=== PATIENT | female | born 1980 | race Caucasian/White ===

== ENCOUNTER 2017-09-06 12:45 | Emergency (ER) | payer MEDICAID ==
[2017-09-06 12:53] VITALS: RESP 18
--- NOTE | 2017-09-06 14:16 | EDPHY ---
H & P Stated Complaint: Right flank pain, burning with urination started today. Time Seen by Provider: 09/06/17 14:15 - Personal History LMP (Females 10-55): IUD In Place Current Tetanus Diphtheria and Acellular Pertussis (TDAP): Yes - Medical/Surgical History Hx Asthma: No Hx Chronic Respiratory Disease: No Hx Diabetes: Yes Hx Cardiac Disease: No Hx Renal Disease: Yes Hx Cirrhosis: No Hx Alcoholism: No Hx HIV/AIDS: No Hx Splenectomy or Spleen Trauma: No Other PMH: kidney stone, gallbladder removed, c-sections, non-hod lymphoma - Social History Smoking Status: Current every day smoker Constitutional: Initial Vital Signs Temperature (C) 36.6 C 09/06/17 12:50 Heart Rate 106 H 09/06/17 12:50 Respiratory Rate 18 09/06/17 12:50 Blood Pressure 146/103 H 09/06/17 12:50 O2 Sat (%) 97 09/06/17 12:50 O2 Delivery Mode Room Air Allergies/Adverse Reactions: morphine [Morphine] Allergy (Verified 08/15/16 11:24) prochlorperazine edisylate [From Compazine] Allergy (Verified 08/15/16 11:24) prochlorperazine maleate [From Compazine] Allergy (Verified 08/15/16 11:24) Home Medications: Medication Instructions Recorded Effexor 06/11/16 Humalog 06/11/16 Lantus 100 UNITS/ML (*) 06/11/16 Lyrica 06/11/16 Cephalexin [Keflex (RX)] 500 mg PO TID #30 cap 09/06/17 Phenazopyridine HCl [Pyridium] 200 mg PO TID #6 tab 09/06/17 Medical Decision Making ED Course/Re-evaluation: CHIEF COMPLAINT: Flank pain, dysuria HISTORY OF PRESENT ILLNESS: The patient is a 37 y/o female with a history of diabetes complaining of right flank pain and dysuria for the last day. She has associated urinary urgency and frequency. She has a history of prior UTIs and kidney stones and reports this feels exactly the same as previous UTIs. She denies fever, vomiting, nausea, diarrhea, or other systemic symptoms. REVIEW OF SYSTEMS: A 10 point review of systems was performed and is negative with the exception of the elements mentioned in the history of present illness. PHYSICAL EXAM: HR, BP, O2 Sat, RR. Temp noted General Appearance: Alert, well hydrated, appropriate, and non-toxic appearing. Head: Atraumatic without scalp tenderness or obvious injury Eyes: Pupils equal, round, reactive to light and accommodation, EOMI, no trauma , no injection. Nose: Atraumatic, no rhinorrhea, clear. Throat: Mucus membranes moist. Neck: Supple, nontender, no lymphadenopathy. Respiratory: No retractions, no distress, no wheezes, and no accessory muscle use. Lungs are clear to auscultation bilaterally. Cardiovascular: Regular rate and rhythm, no murmurs, rubs, or gallops. Good capillary refill all extremities. Gastrointestinal: Abdomen is soft, nontender, non-distended, no masses, no rebound, no guarding, no peritoneal signs. Musculoskeletal: Normal active ROM of all extremities, atraumatic. Neurological: Alert, appropriate, and interactive. The patient has non-focal cranial nerves, motor, sensory, and cerebellar exam. Skin: No rashes, good turgor, no nodules on palpation. 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 MEDICAL DECISION MAKING: This is a 37 y/o female with a history of diabetes, UTIs, and kidney stone who presents with what feels like a UTI for the last day. Her exam is unremarkable and she is afebrile. She has no evidence of system illness. Her UA indicates UTI. Plan to treat with Keflex and discharge with standard UTI care and follow up instructions. She is comfortable with this plan. - Data Points Laboratory Results: 09/06/17 09/06/17 13:30 13:30 Urine Color YELLOW Urine Appearance HAZY Urine pH 6.0 (5.0-7.5) Ur Specific [place] 1.026 (1.002-1.030) Urine Protein 1+ H (NEGATIVE) Urine Ketones 1+ H (NEGATIVE) Urine Blood 1+ H (NEGATIVE) Urine Nitrate NEGATIVE (NEGATIVE) Urine Bilirubin NEGATIVE (NEGATIVE) Urine Urobilinogen NEGATIVE EU EU (0.2-1.0) Ur Leukocyte Esterase TRACE H (NEGATIVE) Urine RBC 25-50 /hpf H /hpf (0-3) Urine WBC 50-182 /hpf H /hpf (0-3) Ur Epithelial Cells 1+ /lpf /lpf (NONE-1+) Urine Bacteria 4+ /hpf H /hpf (NONE SEEN) Urine Mucus TRACE /lpf /lpf (NONE-1+) Urine Glucose 3+ H (NEGATIVE) Medications Given: Discontinued Medications Phenazopyridine HCl (Pyridium) 200 mg PO EDNOW ONE Stop: 09/06/17 15:08 Last Admin: 09/06/17 15:10 Dose: 200 mg Departure - Departure Disposition: Home, Routine, Self-Care Clinical Impression: UTI (urinary tract infection) Qualifiers: Urinary tract infection type: acute cystitis Hematuria presence: with hematuria Qualified Code(s): N30.01 - Acute cystitis with hematuria Condition: Good Instructions: Cephalexin (By mouth), Phenazopyridine (By mouth), Urinary Tract Infection in Women (ED) Additional Instructions: 1. Take Keflex as prescribed for your UTI. Be sure to complete the entire prescription. 2. Use Pyridium as directed on the packaging for urinary pain for 2-3 days. It may discolor your urine. 3. Follow up with your primary care provider or return to the ED for unimproved symptoms over the next 2-3 days. Referrals: Nati Drew MD [[facility] [place] Primary Care Provider] - As per Instructions [facility],. [Clinic] - As per Instructions Prescriptions: Cephalexin [Keflex (RX)] 500 mg PO TID #30 cap Phenazopyridine HCl [Pyridium] 200 mg PO TID #6 tab Report Scribed for: Sandeep See Report Scribed by: Avis Cobian Date of Report: 09/06/17 Time of Report: 15:06
[2017-09-06 14:21] LABS: COLOR YELLOW; LEUKOCYTE ESTERASE,URINE TRACE (NEGATIVE); NITRITE,URINE NEGATIVE (NEGATIVE)
[2017-09-06 15:01] LABS: BACTERIA 4+ /hpf (NONE SEEN); MUCUS TRACE /lpf (NONE-1+); RBC,URINE 25-50 /hpf (0-3); WBC,URINE 50-182 /hpf (0-3)
[2017-09-06] MEDS ORDERED: PHENAZOPYRIDINE HCL 200 MG TAB PO ONE (15:07)
[2017-09-06 15:14] VITALS: BP 114/85; PULSE 69; TEMP 98.6; O2SAT 98
== END 2017-09-06 15:11 | disposition home or self-care (01) ==
DX: N30.01 Acute cystitis with hematuria (principal); B96.1 Klebsiella pneumoniae [K. pneumoniae] as the cause of diseases classified elsewhere; F17.200 Nicotine dependence, unspecified, uncomplicated; E11.9 Type 2 diabetes mellitus without complications; Z79.4 Long term (current) use of insulin